=== PATIENT | female | born 1960 | race Caucasian/White ===

== ENCOUNTER 2023-09-18 10:17 | Observation (INO) | payer MEDICARE, SELFPAY ==
[2023-09-18] VITALS (36 sets, daily range): BP systolic 42–59; BP diastolic 24–42; PULSE 70–99; RESP 8–18; TEMP 35.3–36.6; O2SAT 91–100; BMI 31.5
--- NOTE | ~2023-09-18 | XR_ITS ---
EXAMINATION: XR chest 1V portable DATE: 09/18/2023 10:52 INDICATION: Sepsis. TECHNIQUE: A single frontal view of the chest was obtained. COMPARISON: Chest single view 10/09/2015 FINDINGS: The patient is rotated to her left. There is mild elevation of right hemidiaphragm. There i s no pneumonia, pleural effusion, or pneumothorax. The heart size is normal. There are old healed jan ateral rib fractures. IMPRESSION: 1. Mild elevation of right hemidiaphragm. Reviewed, dictated and finalized at location A.
--- NOTE | 2023-09-18 10:36 | ED.AMS ---
HPI - Altered Mental Status General Chief Complaint: Altered Mental Status Stated Complaint: decreased LOC Time Seen by Provider: 09/18/23 10:36 Source: patient and EMS Mode of arrival: EMS History of Present Illness HPI narrative: PATIENT CAME FROM [facility] BY AMBULANCE BECAUSE WAKING UP THIS MORNING WITH MORE CONFUSION THAN USUAL, LESS RESPONSIVE, LOW BLOOD PRESSURE, LOW BLOOD GLUCOSE. ARRIVAL TO THE ED PATIENT IS RESPONSIVE TO PAINFUL STIMULATION, AT THE BEDSIDE WHO IS TELLING ME THAT PATIENT BEEN HOSPITALIZED LEAST 3 TIMES THIS YEAR WITH SEPSIS LAST 1 LASTED FOR 14 DAYS AT [facility]. PATIENT IS FULL CODE FOR HISTORY OF HYPERTENSION, ASTHMA, PERICARDITIS, CVA 3 YEARS AGO, ALCOHOLISM, MARIJUANA ABUSER Related Data Allergies Allergy/AdvReac Type Severity Reaction Status Date / Time gabapentin Allergy Unknown Verified 09/18/23 11:01 ketorolac Allergy Unknown Verified 09/18/23 11:01 pregabalin Allergy Unknown Verified 09/18/23 11:01 Course Vital Signs Vital signs: Vital Signs Temperature 36.6 C 09/18/23 10:20 Pulse Rate 99 09/18/23 10:20 Respiratory Rate 14 09/18/23 10:20 Blood Pressure 49/33 L 09/18/23 10:20 Pulse Oximetry 100 09/18/23 10:20 Oxygen Delivery Room Air 09/18/23 10:20 Temperature 36.6 C 09/18/23 10:20 Pulse Rate 88 09/18/23 10:51 Respiratory Rate 14 09/18/23 10:51 Blood Pressure 50/38 L 09/18/23 10:51 Pulse Oximetry 100 09/18/23 10:51 Oxygen Delivery Room Air 09/18/23 10:45 MDM - Altered Mental Status MDM Narrative Medical decision making narrative: patient came with unresponsive to verbal commands, Vital signs on arrival showed blood pressure of 49/33 Physical examination showed unresponsive to verbal command, pale, cold skin, lethargic and severely ill looking with dry mouth Differential diagnosis include sepsis, dehydration, electrolyte imbalance, pneumonia, urinary tract infection, Initially patient's and daughter requested full code status, after seeing what is ago non, the who have the power of carbon furnace operator it changed the full code status to comfort measures status only. And was able to explain to the that new change will allow the patient to have IV fluid, IV pain medication, oxygen, to make her comfortable . He understood that no medications or any intervention to prolong patient life at this time including IV antibiotic, blood transfusion, central line, and vasopressors. Differential Diagnosis Differential diagnosis: Likely other ( As above) Medical Records Attestation: I reviewed the patient's medical records. Lab Data Attestation: I reviewed the patient's lab results. 09/18/23 10:37 09/18/23 10:37 Labs: Lab Results 09/18/23 09/18/23 Range/Units 10:28 10:37 WBC 7.5 (4.8-10.8) K/mm3 RBC 2.42 L (4.20-5.40) M/mm3 Hgb 8.9 L (11.7-13.8) g/dL Hct 27.5 L (35.0-42.0) % MCV 113.6 H (78.0-102.0) fL MCH 36.8 H (27.0-31.0) pg MCHC 32.4 (32-36) g/dL RDW 14.1 (11.6-14.4) % Plt Count 177 (150-420) K/mm3 MPV 10.3 (9.2-11.8) fl Immature Gran % (Auto) Not Reportable Neut % (Auto) Not Reportable Lymph % (Auto) Not Reportable Spencer % (Auto) Not Reportable Eos % (Auto) Not Reportable Baso % (Auto) Not Reportable Lymph # (Auto) Not Reportable Spencer # (Auto) Not Reportable Eos # (Auto) Not Reportable Baso # (Auto) Not Reportable Abs Immat Gran (auto) Not Reportable Absolute Neuts (auto) Not Reportable Absolute Nucleated RBC Not Reportable Nucleated RBC % Not Reportable Platelet Estimate Pending Schistocytes Pending PT 17.2 H (9.50-12.1) Seconds INR 1.6 APTT 49.9 H (23.9-30.70) Sec Sodium 135 L (136-145) mmol/L Potassium 3.9 (3.5-5.1) mmol/L Chloride 103 (98-108) mmol/L Carbon Dioxide 21 (21-32) mmol/L Anion Gap 11 (4-12) mmol/L BUN 25 H (7-18) mg
--- NOTE | 2023-09-18 10:37 | ECG_ITS ---
Test Date: 2023-09-18 10:39:58 Measurements Intervals [place] Rate: 91 P: 81 WI: 180 QRS: 24 QRSD: 85 T: 0 QT: 185 QTc: 228 Interpretive Statements SINUS RHYTHM LOW QRS VOLTAGE [QRS DEFLECTION < 0.5/1.0 mV IN LIMB/CHEST LEADS] RIGHT BUNDLE BRANCH BLOCK NONSPECIFIC ST SEGMENT ABNORMALITY ABNORMAL ECG No previous ECG available for comparison Electronically Signed On 09-20-2023 14:48:30 CDT by Rudolph Babb M.D.
[2023-09-18 10:45] LABS: Glucose Point of Care 94 mg/dl (65-105)
[2023-09-18 10:53] LABS: Hematocrit 27.5 % (35.0-42.0); Hemoglobin 8.9 g/dL (11.7-13.8); Mean Corpuscular HGB Conc 32.4 g/dL (32-36); Mean Corpuscular Hemoglobin 36.8 pg (27.0-31.0); Mean Corpuscular Volume 113.6 fL (78.0-102.0); Mean Platelet Volume 10.3 fl (9.2-11.8); Platelet Count Result 177 K/mm3 (150-420); Red Blood Count 2.42 M/mm3 (4.20-5.40); Red Cell Distribution Width 14.1 % (11.6-14.4); White Blood Count 7.5 K/mm3 (4.8-10.8)
[2023-09-18 11:00] LABS: INR 1.6; Partial Thromboplastin Time 49.9 Sec (23.9-30.70); Prothrombin Time 17.2 Seconds (9.50-12.1)
[2023-09-18 11:06] LABS: Alanine Aminotransferase 8 U/L (14-59); Albumin Level 0.8 g/dL (3.4-5.0); Alkaline Phosphatase 174 U/L (46-116); Anion Gap 11 mmol/L (4-12); Aspartate Amino Transferase 17 U/L (15-37); Bilirubin,Total 0.9 mg/dL (0.00-1.00); Blood Urea Nitrogen 25 mg/dL (7-18); CRP > 25.0 mg/dL (0.0-0.9); Calcium 8.3 mg/dL (8.5-10.1); Carbon Dioxide 21 mmol/L (21-32); Chloride 103 mmol/L (98-108); Estimated CRCL calculation 25 ml/min; Estimated Glomerular Filt Rate 21; Osmolality Calculated 281 mOsm/kg (285-295); Potassium 3.9 mmol/L (3.5-5.1); Sodium 135 mmol/L (136-145); Total Protein 3.5 g/dL (6.4-8.2); Troponin I < 4.0 ng/L (0.00-60.4)
[2023-09-18 11:07] LABS: Glucose 50 mg/dL (70-99)
[2023-09-18 11:10] LABS: Lactic Acid Reflex 6.1 mmol/L (0.4-2.0)
[2023-09-18] MEDS: DEXTROSE 50% 25 GM/50 ML SYRINGE IV PUSH ×2 (11:15→11:16)
[2023-09-18] MEDS: SODIUM CHLORIDE 0.9% IV 2,700 ML/1,000 ML BAG 999 ML IV CONT (11:21)
[2023-09-18] MEDS: PIPERACILLIN/TAZ 2.25G/NS 50ML 2.25 GM/50 ML BAG IVPB (11:29)
[2023-09-18] MEDS: VANCOMYCIN 1,000 MG/NS 250 ML 1,000 MG/250 ML BAG 250 MG IVPB (11:48)
[2023-09-18] MEDS: SODIUM CHLORIDE 0.9% IV 1,000 ML 100 ML IV CONT (12:10)
[2023-09-18 12:22] LABS: Add Urine Microscopic? YES; Bilirubin Urine 1+ (Negative); Blood Urine Trace-intact (Negative); Color Urine Dark Yellow (Yellow); Glucose Urine UA Negative (Negative); Ketones Urine Trace (Negative); Leukocyte Esterase Ur Trace LEU/UL (Negative); Nitrate Urine Negative (Negative); Protein Urine 3+ (Negative); Specific Grav Ur >= 1.030 (1.010-1.020); pH Urine 5.5 (5.0-8.0)
[2023-09-18 12:32] LABS: Amorphous Sediment Urine Few; Appearance Urine Cloudy (Clear); Bacteria Urine 4+ /hpf; RBC Urine 0-2 /hpf (0-2); Squamous Epithelial Cell Urine Few /hpf (Few)
[2023-09-18 12:33] LABS: Mucus Urine Few /lpf
[2023-09-18 12:45] LABS: Band Neutrophils Percent 14 % (0-6); Eosinophils Absolute Manual 0.07 K/mm3 (0.02-0.50); Eosinophils Percent Manual 1 % (1-6); Lymphocytes Absolute Manual 1.35 K/mm3 (1.1-4.5); Lymphocytes Percent Manual 18 % (18-44); Monocytes Percent Manual 8 % (3-9); Neutrophils Absolute Manual 5.47 K/mm3 (1.7-7.2); Neutrophils Percent Manual 59 % (46-73); Nucleated Red Blood Cells 1 %; Total Cells Counted 100
[2023-09-18 12:46] LABS: Anisocytosis 1+; Hypochromasia 1+; Large Platelets Present; Macrocytosis 1+ (NORMAL); Microcytosis 1+ (NORMAL); Platelet Clumps Present; Platelet Estimate Adequate (Adequate); Poikilocytosis 1+; Polychromasia 1+; Target Cells 1+; Toxic Granulation Present
[2023-09-18 12:47] LABS: Atypical Lymphocytes Present; Schistocytes 1+
[2023-09-18 13:01] LABS: SARS-CoV-2 RNA PCR Negative (Negative)
[2023-09-18 13:07] LABS: Influenza A QL RT-PCR Negative (Negative); Influenza B QL RT-PCR Negative (Negative); RSV RNA, RT-PCR Negative (Negative)
--- NOTE | 2023-09-18 13:08 | PC.NURSE ---
[facility] NOTIFIED OF ADMISSION.
[2023-09-18 13:42] LABS: Reflex Lactic Acid Yes or No Add Lactic
[2023-09-18] MEDS: MORPHINE SULFATE (*CRX) 2 MG/ML INJ IV PUSH (13:53)
--- NOTE | 2023-09-18 14:28 | PC.NURSE ---
Pt admitted to the floor from ED. She is comfort care only. Pt is unresponsive, cool sallow skin. She is moaning at this time. Pt has multiple open areas on her back and the backs of her legs from edema. Pt has a velazquez with 0 output. Velazquez placed in ED at 1115 today. Family is present at bedside.
[2023-09-18] MEDS: LORazepam INJ (*CRX) 2 MG/ML VIAL 1 MG IV PUSH (15:35)
[2023-09-18] MEDS: MORPHINE SULFATE ORAL CONC SOL (*CRX) 10 MG/0.5 ML SYRINGE 2 MG PO ×2 (17:18→20:21)
--- NOTE | 2023-09-18 17:50 | PC.NURSE ---
Patient turned and repositioned, Patient noted to have several areas to the back of her thighs that are weeping a large amount. Sites cleansed well and left open to air. Super absorbent pad placed under patient. Patient tolerated well.
[2023-09-19] MEDS: MORPHINE SULFATE ORAL CONC SOL (*CRX) 10 MG/0.5 ML SYRINGE 2 MG PO ×6 (00:13→17:27)
[2023-09-19 04:20] VITALS: PULSE 80; RESP 9; TEMP 36.1; O2SAT 99
[2023-09-19 06:23] VITALS: PULSE 72; RESP 8; O2SAT 98
[2023-09-19 08:00] VITALS: RESP 8
--- NOTE | 2023-09-19 08:00 | PC.NURSE ---
Patient comfort care. Patient appears to be resting comfortably, no distress noted. continues at patients side. Will cont. to monitor patient.
[2023-09-19] MEDS: LORazepam (*CRX) 2 MG/ML 30 ML ORAL CONCENTRATE 1 MG SUBLINGUAL ×2 (10:43→16:12)
[2023-09-19] MEDS: ATROPINE SULFATE 1% OPHTH SOLN 5 ML BOTTLE 1 DROP SUBLINGUAL ×2 (12:24→16:12)
--- NOTE | 2023-09-19 13:20 | PM.IMHP ---
H&P: HPI History of Present Illness Date/Time: 09/19/23 13:20 Chief Complaint: AMS Narrative: This is the 63-year-old female in past medical history asthma, hypertension, pericarditis, stroke, alcohol abuse, marijuana abuse who presented to the hospital with altered mental status. Patient is unable to attribute to presenting illness and most of her history of presenting illness was obtained from the EMR. Workup in the hospital included a chest x-ray which was negative. Initial labs shown a normal white blood cell count of 7.5, hemoglobin 8.9, band neutrophils 14, PT 17.2, INR 1.6, PTT 49.9, sodium 135, creatinine 2.3, glucose 50, EGFR 21, lactic acid 6.1, alk-phos 174, C reactive protein greater than 25. A UA was obtained which showed a cloudy appearance, pH 1.030, 3+ urine protein, trace ketone, trace blood, 1+ urine bili, trace leukocyte, 10-15 urine WBC, 4+ bacteria. Respiratory panel was obtained and was negative for influenza a and B, RSV, COVID. Blood and urine cultures were obtained. Blood culture showing Gram-negative bacilli isolated in aerobic bottle only on preliminary read. Urine culture is pending. The other set of blood cultures are showing no growth on preliminary read. Patient's who is the power of trademark attorney requested that the patient be made comfort measures only as she has been hospitalized at least 3 times this year with sepsis and the last episode of sepsis lasted 14 days in [facility]. Review of Systems Review of Systems: ROS unobtainable: Yes unobtainable due to mental status PMFSH Past Medical History Medical History Alcohol abuse Asthma Frequent falls Hypertension Marijuana abuse Pericarditis Stroke Social History Social History Smoking status: Unknown if ever smoked Second hand tobacco smoke exposure: No Alcohol intake: former Substance use type: marijuana Living arrangements: with family Gender identity (if verbalized by the patient): Female Sexual Orientation (if Verbalized by the Patient): Straight or Heterosexual Spiritual care concerns: No Meds Home Medications and Allergies Home Medications Medication Instructions Recorded Confirmed Type acetaminophen 500 mg tablet 50 mg PO BID 09/19/23 09/19/23 History (Acetaminophen Extra Strength) aspirin 81 mg capsule 81 mg PO DAILY 09/19/23 09/19/23 History buspirone 10 mg tablet 10 mg PO BID 09/19/23 09/19/23 History carvedilol 3.125 mg tablet 3.125 mg PO DAILY 09/19/23 09/19/23 History clopidogrel 75 mg tablet 75 mg PO DAILY 09/19/23 09/19/23 History cyanocobalamin (vitamin B-12) 500 1,000 mcg PO DAILY 09/19/23 09/19/23 History mcg tablet diltiazem HCl 120 mg 120 mg PO DAILY 09/19/23 09/19/23 History capsule,extended release 24 hr donepezil 5 mg tablet 5 mg PO HS 09/19/23 09/19/23 History hydrocodone 5 mg-acetaminophen 325 1 tablet PO QAM AND QPM PRN Pain 09/19/23 09/19/23 History mg tablet levetiracetam 500 mg tablet 500 mg PO BID 09/19/23 09/19/23 History levothyroxine 50 mcg tablet 50 mcg PO QAM 09/19/23 09/19/23 History miconazole nitrate 2 % topical BID 09/19/23 09/19/23 History pantoprazole 40 mg tablet,delayed 40 mg PO BID 09/19/23 09/19/23 History release (Protonix) polyethylene glycol 3350 17 gram 17 g PO DAILY 09/19/23 09/19/23 History oral powder packet senna-docusate sodium tablet 1 tablet PO BID 09/19/23 09/19/23 History trazodone 50 mg tablet 50 mg PO QHS 09/19/23 09/19/23 History Allergies Allergy/AdvReac Type Severity Reaction Status Date / Time gabapentin Allergy Unknown Verified 09/18/23 11:01 ketorolac Allergy Unknown Verified 09/18/23 11:01 pregabalin Allergy Unknown Verified 09/18/23 11:01 Vital Signs Vital Signs - 24 hr 09/18/23 17:50 09/18/23 20:00 09/18/23 19:50 Temperature 97.6 F Pulse Rate 87 78 Respiratory Rate 8 L 8 L Blo
[2023-09-19 15:00] VITALS: RESP 6
--- NOTE | 2023-09-19 18:25 | PC.NURSE ---
Patients Boyd called this nurse and states he thinks patient isn't breathing anymore. This nurse and supervisor in charge Deidre confirmed patient had passed. Deidre RN called daughter Anahi to notify of patients passing. Time of 1819.
--- NOTE | 2023-09-19 21:54 | PC.NURSE ---
[facility] transplant returned call and stated patient does not qualify for donation. [facility] notified that patient can be picked up at any time. [facility] notified of patient passing away.
--- NOTE | 2023-09-19 22:29 | PC.NURSE ---
Lisandro Leblanc here to transport patient to the home.
--- NOTE | 2023-09-24 15:24 | P.DN_ITS ---
Discharge Summary Date and Time Date of : 09/19/23 Time of : 18:30 Provider Pronounced By: 2 RNs Name of First RN That Pronounced: Марина Larson RN Name of Second RN That Pronounced: Casandra Barker RN Probable Cause of Probable Cause of : Sepsis shock, bacteremia, acute renal failure, acute urinary tract infection Summary Hospital Course: This is the 63-year-old female in past medical history asthma, hypertension, pericarditis, stroke, alcohol abuse, marijuana abuse who presented to the hospital with altered mental status. Patient is unable to attribute to presenting illness and most of her history of presenting illness was obtained from the EMR. Workup in the hospital included a chest x-ray which was negative. Initial labs shown a normal white blood cell count of 7.5, hemoglobin 8.9, band neutrophils 14, PT 17.2, INR 1.6, PTT 49.9, sodium 135, creatinine 2.3, glucose 50, EGFR 21, lactic acid 6.1, alk-phos 174, C reactive protein greater than 25. A UA was obtained which showed a cloudy appearance, pH 1.030, 3+ urine protein, trace ketone, trace blood, 1+ urine bili, trace leukocyte, 10- 15 urine WBC, 4+ bacteria. Respiratory panel was obtained and was negative for influenza a and B, RSV, COVID. Blood and urine cultures were obtained. Blood culture showing Gram-negative bacilli isolated in aerobic bottle only on preliminary read. Urine culture is pending. The other set of blood cultures are showing no growth on preliminary read. Patient's who is the power of real estate associate attorney requested that the patient be made hospice/ comfort measures only as she has been hospitalized at least 3 times this year with sepsis and the last episode of sepsis lasted 14 days in [facility]. Time of reported at 6:40 p.m. on 09/19/2023. Final diagnosis: Sepsis shock, bacteremia, acute renal failure, acute urinary tract infection Additional Data Confirmation of as documented by pronouncing clinician: Pupillary Reflex, Palpable Pulses, Response to Stimuli, Heart Tones and Breath Sounds Name of Provider Notified: Cordelia Coffmanist Time Provider Notified: 18:00 Provider Requests Autopsy: No Family Requests Autopsy: No Date [facility] Notified of : 09/19/23 Time [facility] Notified of : 18:40
== END 2023-09-19 22:30 | disposition expired ==
LOC: CHSED 12:00 → CHS2ND 13:09
PROVIDERS: Admitting Provider Internal Medicine; Emergency Provider Emergency Medicine; PCP Family Medicine; Visit Provider Internal Medicine
DX: A41.9 Sepsis, unspecified organism (principal); R65.21 Severe sepsis with septic shock; N17.9 Acute kidney failure, unspecified; N39.0 Urinary tract infection, site not specified; I10 Essential (primary) hypertension; J45.909 Unspecified asthma, uncomplicated; Z86.73 Personal history of transient ischemic attack (TIA), and cerebral infarction without residual deficits; F12.10 Cannabis abuse, uncomplicated; Z79.82 Long term (current) use of aspirin; Z79.891 Long term (current) use of opiate analgesic; Z79.02 Long term (current) use of antithrombotics/antiplatelets; Z20.822 Contact with and (suspected) exposure to COVID-19; F10.10 Alcohol abuse, uncomplicated
CPT/HCPCS: 36415; 71045; 80053; 81001; 82948; 83605; 84484; 85025; 85610; 85730; 86140; 87040; 87086; 87147; 87186; 87637; 93005; 96361; 96365; 96368; 96375; 99285; A9270; G0378; J2060; J2270; J2543; J3370; J7030